=== PATIENT | male | born 1950 | race Caucasian/White ===

== ENCOUNTER 2023-08-30 20:41 | Inpatient (IN) | payer MEDICARE, OTHER ==
[2023-08-31] MEDS ORDERED: Acetaminophen 325 MG TAB PO PRN (00:05)
[2023-08-31] MEDS ORDERED: Calcium Carbonate 500 MG ChewTAB PO PRN (00:05)
[2023-08-31] MEDS ORDERED: Ondansetron ODT 4 MG TAB PO PRN (00:05)
[2023-08-31 00:11] VITALS: BMI 23.7
[2023-08-31 00:59] LABS: #Eosinphils 0.1 thou/uL (0.0-0.7); #Monocytes 0.8 thou/uL (0.11-0.59); #Neutrophils 5.5 thou/uL (1.40-6.50); %Basophils 0.5 % (0.0-1.0); %Eosinophils 1.6 % (0.0-10.0); %Lymphocytes 24.3 % (21.0-51.0); %Monocytes 9.6 % (0.0-10.0); %Neutrophils 63.8 % (42.0-75.0); Hematocrit 43.6 % (42.0-52.0); Hemoglobin 14.5 g/dL (14.0-18.0); Mean Corpuscular HGB CONC 33.3 g/dL (32.0-36.0); Mean Corpuscular Hemoglobin 30.5 pg (27.0-31.0); Mean Corpuscular Volume 91.8 fl (78.0-98.0); Mean Platelet Volume 8.9 fL (7.4-10.4); Platelet Count 304 10x3/uL (130-400); RBC Distribution Width 13.2 % (11.5-14.5); Red Blood Cell (RBC) Count 4.75 mill/uL (4.70-6.10); White Blood Cell (WBC) Count 8.6 10x3/uL (4.8-10.8)
[2023-08-31 01:22] LABS: Anion Gap 13 mmol/L (10-20); BUN (Urea Nitrogen) 17 mg/dL (8.4-25.7); Calc. Creatinine Clearance 85 mL/min (70-130); Calcium 9.8 mg/dL (7.8-10.44); Carbon Dioxide 27 mmol/L (23-31); Chloride 106 mmol/L (98-107); Estimated GFR 89; Glucose 110 mg/dL (83-110); Potassium 4.2 mmol/L (3.5-5.1); Sodium 142 mmol/L (136-145)
[2023-08-31 01:35] LABS: Troponin I 8.718 ng/mL (< 0.028)
[2023-08-31] MEDS: Famotidine 20 MG TAB PO SCH ×2 (08:24→20:21)
[2023-08-31] MEDS: Aspirin Chewable 81 MG TAB PO SCH (08:24)
[2023-08-31] MEDS ORDERED: Communication Order-Pharmacy FS SCH (09:15)
[2023-08-31] MEDS ORDERED: Amlodipine 5 MG TAB PO SCH (09:30)
[2023-08-31] MEDS: Atorvastatin Calcium 40 MG TAB PO SCH (20:21)
[2023-09-01 05:12] LABS: #Basophils 0.1 thou/uL (0.0-0.2); #Eosinphils 0.2 thou/uL (0.0-0.7); #Monocytes 0.8 thou/uL (0.11-0.59); #Neutrophils 5.2 thou/uL (1.40-6.50); %Basophils 0.6 % (0.0-1.0); %Eosinophils 2.4 % (0.0-10.0); %Lymphocytes 26.9 % (21.0-51.0); %Neutrophils 60.9 % (42.0-75.0); Hematocrit 43.6 % (42.0-52.0); Hemoglobin 14.2 g/dL (14.0-18.0); Mean Corpuscular HGB CONC 32.6 g/dL (32.0-36.0); Mean Platelet Volume 8.9 fL (7.4-10.4); Platelet Count 258 10x3/uL (130-400); RBC Distribution Width 13.1 % (11.5-14.5); Red Blood Cell (RBC) Count 4.74 mill/uL (4.70-6.10); White Blood Cell (WBC) Count 8.5 10x3/uL (4.8-10.8)
[2023-09-01 05:26] LABS: Hemoglobin A1c 5.9 % (4.0-6.0)
[2023-09-01 05:48] LABS: ALT (SGPT) 12 U/L (8-55); AST (SGOT) 31 U/L (5-34); Albumin 3.8 g/dL (3.4-4.8); Alkaline Phosphatase 42 U/L (40-110); Anion Gap 11 mmol/L (10-20); BUN (Urea Nitrogen) 16 mg/dL (8.4-25.7); Bilirubin, Total 0.7 mg/dL (0.2-1.2); Calc. Creatinine Clearance 91 mL/min (70-130); Calcium 8.8 mg/dL (7.8-10.44); Carbon Dioxide 24 mmol/L (23-31); Cardiac Risk 3.9 (Less than 4.5); Chloride 108 mmol/L (98-107); Cholesterol 142 mg/dl (< 200 Desired); Estimated GFR 93; Globulin 2.3 g/dL (2.4-3.5); Glucose 94 mg/dL (83-110); HDL Cholesterol 36 mg/dL (>60 Neg Risk); LDL Cholesterol, Calculated 83 mg/dL; Potassium 3.7 mmol/L (3.5-5.1); Protein, Total 6.1 g/dL (5.8-8.1); Sodium 139 mmol/L (136-145); Triglycerides 117 mg/dL (Less than 150)
[2023-09-01] MEDS: Sodium Chloride 0.9% 1,000 ML IV SCH ×2 (06:08→16:49)
[2023-09-01] MEDS: Famotidine 20 MG TAB PO SCH ×2 (06:20→20:57)
[2023-09-01] MEDS: Aspirin Chewable 81 MG TAB PO SCH (06:20)
[2023-09-01] MEDS ORDERED: Lidocaine 1% (PF) 30 ML VIAL ONE (07:40)
[2023-09-01] MEDS ORDERED: fentaNYL 50 mcg/mL 1 mL Vial ONE ×2 (07:45→09:25)
[2023-09-01] MEDS ORDERED: Midazolam HCl 2 mg/2 ml Vial ONE (07:47)
[2023-09-01] MEDS ORDERED: Amlodipine 5 MG TAB PO SCH (09:00)
[2023-09-01] MEDS ORDERED: Heparin 10,000 UNITS/ 10 ML VIAL ONE ×2 (09:05→09:45)
[2023-09-01] MEDS ORDERED: Nitroglycerin 50 MG/250 ML BOT 250 ML ONE (09:08)
[2023-09-01] MEDS ORDERED: Atropine Sulfate 1 mg/10 ml Syringe ONE (09:09)
[2023-09-01] MEDS ORDERED: TICAGRELOR 90 MG TABLET ONE (09:52)
[2023-09-01] MEDS ORDERED: TICAGRELOR 90 MG TABLET PO SCH ×2 (10:15→21:00)
[2023-09-01] MEDS ORDERED: Acetaminophen 500 MG TAB ONE (13:41)
[2023-09-01] MEDS ORDERED: Iopamidol 370 76% 100 ML VIAL ONE (14:02)
[2023-09-01] MEDS ORDERED: Carvedilol 3.125 MG TAB PO SCH (17:00)
[2023-09-01] MEDS: Atorvastatin Calcium 40 MG TAB PO SCH (20:57)
[2023-09-02] MEDS: Sodium Chloride 0.9% 1,000 ML IV SCH (03:31)
[2023-09-02 06:02] LABS: #Eosinphils 0.1 thou/uL (0.0-0.7); #Monocytes 0.7 thou/uL (0.11-0.59); #Neutrophils 6.1 thou/uL (1.40-6.50); %Basophils 0.2 % (0.0-1.0); %Eosinophils 1.4 % (0.0-10.0); %Lymphocytes 18.6 % (21.0-51.0); %Monocytes 8.6 % (0.0-10.0); %Neutrophils 70.9 % (42.0-75.0); Hematocrit 41.4 % (42.0-52.0); Hemoglobin 13.7 g/dL (14.0-18.0); Mean Corpuscular HGB CONC 33.1 g/dL (32.0-36.0); Mean Corpuscular Hemoglobin 30.7 pg (27.0-31.0); Mean Corpuscular Volume 92.8 fl (78.0-98.0); Mean Platelet Volume 8.9 fL (7.4-10.4); Platelet Count 252 10x3/uL (130-400); RBC Distribution Width 13.1 % (11.5-14.5); Red Blood Cell (RBC) Count 4.46 mill/uL (4.70-6.10); White Blood Cell (WBC) Count 8.6 10x3/uL (4.8-10.8)
[2023-09-02 06:28] LABS: ALT (SGPT) 8 U/L (8-55); AST (SGOT) 18 U/L (5-34); Albumin 3.7 g/dL (3.4-4.8); Alkaline Phosphatase 41 U/L (40-110); Anion Gap 11 mmol/L (10-20); BUN (Urea Nitrogen) 12 mg/dL (8.4-25.7); Bilirubin, Total 0.7 mg/dL (0.2-1.2); Calc. Creatinine Clearance 92 mL/min (70-130); Calcium 8.8 mg/dL (7.8-10.44); Carbon Dioxide 23 mmol/L (23-31); Chloride 109 mmol/L (98-107); Estimated GFR 93; Globulin 2.3 g/dL (2.4-3.5); Glucose 94 mg/dL (83-110); Potassium 3.9 mmol/L (3.5-5.1); Sodium 139 mmol/L (136-145)
[2023-09-02] MEDS ORDERED: Clopidogrel Bisulfate 300 MG TAB PO SCH (07:45)
[2023-09-02 08:13] VITALS: BP 126/65; TEMP 97.9
[2023-09-02] MEDS ORDERED: Lisinopril 2.5 MG TAB PO SCH (09:00)
[2023-09-02] MEDS: Famotidine 20 MG TAB PO SCH (09:41)
[2023-09-02] MEDS: Aspirin Chewable 81 MG TAB PO SCH (09:41)
[2023-09-03] MEDS ORDERED: Clopidogrel Bisulfate 75 MG TAB PO SCH (09:00)
== END 2023-09-02 10:28 | disposition home or self-care (01) | DRG 322 ==
LOC: UNDOADMIN 20:41 → 2NO 20:41
PROVIDERS: ADMIT Student in an Organized Health Care Education/Training Program; ATTEND Family Medicine
PROC: 027034Z Dilation of Coronary Artery, One Artery with Drug-eluting Intraluminal Device, Percutaneous Approach (ICD-10-PCS; principal; 2023-09-01)
PROC: 4A023N7 Measurement of Cardiac Sampling and Pressure, Left Heart, Percutaneous Approach (ICD-10-PCS; 2023-09-01)
PROC: B2131ZZ Fluoroscopy of Multiple Coronary Artery Bypass Grafts using Low Osmolar Contrast (ICD-10-PCS; 2023-09-01)
PROC: B2151ZZ Fluoroscopy of Left Heart using Low Osmolar Contrast (ICD-10-PCS; 2023-09-01)
PROC: B240ZZ3 Ultrasonography of Single Coronary Artery, Intravascular (ICD-10-PCS; 2023-09-01)
DX: I21.4 Non-ST elevation (NSTEMI) myocardial infarction (principal); I25.10 Atherosclerotic heart disease of native coronary artery without angina pectoris; K21.9 Gastro-esophageal reflux disease without esophagitis; I10 Essential (primary) hypertension; E78.5 Hyperlipidemia, unspecified; R00.1 Bradycardia, unspecified
CPT/HCPCS: 36415; 71045; 80048; 80053; 80061; 83036; 83690; 83735; 84443; 84484; 85025; 85347; 92928; 92978; 93005; 93010; 93458; 94760; 96372; 99152; 99153; C1753; C1769; C1874; C1887; C1894; C9600; J0461; J1644; J1650; J2001; J2250; J3010; J7050; Q9967